=== PATIENT | female | born 1980 | race Caucasian/White ===

== ENCOUNTER 2016-06-12 10:51 | Emergency (ER) | payer OTHER ==
[~2016-06-12 10:51] MED LIST: CLEO300C2 PO; Z.0.NO CURRENT MEDS
[2016-06-12 10:57] VITALS: BP 182/104; PULSE 97; RESP 12; TEMP 98.2; O2SAT 100
[2016-06-12] MEDS ORDERED: METR250 PO (12:49)
--- NOTE | 2016-06-12 13:35 | PD ---
HPI Chief Complaint: Abdominal Pain Time Seen by Provider: 13:09 Travel History International Travel<30 days: No Contact w/Intl Traveler<30days: No Traveled to known affect area: No History of Present Illness HPI The patient was seen and examined in the presence of the nurse. This patient complains of abdominal pain. Duration 2 days. It is located just to the right side of her umbilicus. It's a very small discrete area. No nausea or vomiting or diarrhea. She has no fever and is eating well. PFSH Past Medical History ?: Not Past Surgical History Tonsillectomy: Yes Social History Alcohol Use: No Tobacco Use: No Substance Use: No Allergies-Medications (Allergen,Severity, Reaction): Coded Allergies: Sulfa (Verified Allergy, Severe, Rash, 10/29/09) Reported Meds & Prescriptions Reported Meds & Active Scripts Active Reported Flagyl (Metronidazole) 250 Mg Tab 250 Mg PO QID Review of Systems General / Constitutional: No: Fever HENT: No: Headaches Cardiovascular: No: Chest Pain or Discomfort Physical Exam Narrative GASTROINTESTINAL: Abdomen soft, non-tender, nondistended. Positive bowel sounds. No hepato-splenomegaly, or palpable masses. No guarding. SKIN: Inspection shows no rash or ulcers. Palpation shows no induration or nodules. Psych: Normal mood and affect. Normal insight and judgment. Data Data Last Documented VS Vital Signs Date Time Temp Pulse Resp B/P Pulse Ox O2 Delivery O2 Flow Rate FiO2 06/12/16 10:57 98.2 97 12 182/104 100 Room Air MDM Medical Decision Making Medical Screen Exam Complete: Yes Emergency Medical Condition: Yes Medical Record Reviewed: Yes Differential Diagnosis Hernia, ileus, appendicitis Narrative Course I have reviewed the patient's electronic medical record. Patient has an atypical minor abdominal complaint. Etiology is unclear. She is a soft benign nontender abdomen. I don't have any clinical suspicion of emergent intra-abdominal process. Urine is negative We had a lengthy discussion about testing. I think it would be nonspecific and not helpful. Recommending primary care follow-up Advised to return of this as worsening or she has repetitive vomiting or fever and more extensive workup can be done. Diagnosis Primary Impression: Abdominal pain Qualified Code: R10.33 - Periumbilical abdominal pain Additional Instructions: The patient was advised to follow up with their physician and return if they worsen. Med/Other Pt SpecificInfo: Other Disposition: 01 DISCHARGE HOME Condition: Stable Han Burrell MD Jun 12, 2016 13:35
== END 2016-06-12 13:51 | disposition home or self-care (01) ==
LOC: NEPB 10:51
DX: R10.9 Unspecified abdominal pain (principal)
CPT/HCPCS: 99283

== ENCOUNTER 2017-03-13 15:04 | Emergency (ER) | payer OTHER ==
[~2017-03-13] VITALS: Ht 167.6 cm; Wt 80.0 kg
[~2017-03-13 15:04] MED LIST changes: -CLEO300C2 PO; +METR250 PO; -Z.0.NO CURRENT MEDS
[2017-03-13 15:06] VITALS: BP 186/108; PULSE 109; RESP 21; TEMP 98.4; O2SAT 99
--- NOTE | 2017-03-13 15:16 | PD ---
Physical Exam Time Seen by Provider: 15:12 Narrative 36-year-old female presents to emergency Department with complaint of chest pain , chest tightness, tingling of the left arm, facial flushing, heart racing onset last night. She has history of panic attacks and took Ativan to calm her symptoms with no relief. Says the symptoms are not similar to her panic attack symptoms. She feels like her blood pressure is elevated. Denies history of hypertension. Patient seen in triage. Vital signs reviewed. Patient awaiting bed placement. Data Data Last Documented VS Vital Signs Date Time Temp Pulse Resp B/P (MAP) Pulse Ox O2 Delivery O2 Flow Rate FiO2 03/13/17 15:06 98.4 109 21 186/108 (134) 99 MDM Supervised Visit with JOHN: Christi Black Mar 13, 2017 15:16
[2017-03-13] MEDS ORDERED: SODIUM CHLORIDE 0.9% FLUSH 10 ML FLUSH IVF PRN (15:30)
[2017-03-13] MEDS ORDERED: LORA-474 PO (16:48)
--- NOTE | 2017-03-13 16:57 | RADRPT ---
EXAM DATE/TIME: 03/13/2017 16:24 [facility] COMPARISON: No previous studies available for comparison. INDICATIONS : Irregular heart rate, chest tightness for 2 days MEDICAL HISTORY : None. SURGICAL HISTORY : None. ENCOUNTER: Initial ACUITY: 2 days PAIN SCORE: 0/10 LOCATION: Bilateral chest FINDINGS: PA and lateral views of the chest demonstrate the lungs to be symmetrically aerated without evidence of mass, infiltrate or effusion. The cardiomediastinal contours are unremarkable. Osseous structure s are intact. CONCLUSION: No acute disease. Mohamud Josue MD FACR on March 13, 2017 at 16:55 Board Certified Radiologist. This report was verified electronically.
[2017-03-13 17:03] VITALS: O2SAT 99
[2017-03-13 17:04] LABS: AUTOMATED NEUTROPHIL # 5.3 TH/MM3 (1.8-7.7); BASOPHIL % 0.5 % (0.0-2.0); EOSINOPHIL # 0.1 TH/MM3 (0-0.4); EOSINOPHIL % 1.5 % (0.0-4.0); HEMATOCRIT 40.9 % (35.0-46.0); HEMO FLAGS DIFF FINAL; LYMPH % 28.1 % (9.0-44.0); LYMPHOCYTE # 2.4 TH/MM3 (1.0-4.8); MEAN CELL VOLUME 85.7 FL (80.0-100.0); MEAN CORPUSCULAR HEMOGLOBIN 28.7 PG (27.0-34.0); MEAN CORPUSCULAR HGB CONC 33.5 % (32.0-36.0); MONO % 7.9 % (0.0-8.0); PLATELET COUNT 300 TH/MM3 (150-450); RED BLOOD COUNT 4.77 MIL/MM3 (4.00-5.30); RED CELL DISTRIBUTION WIDTH 12.8 % (11.6-17.2); WHITE BLOOD COUNT 8.5 TH/MM3 (4.0-11.0)
[2017-03-13 17:14] LABS: APTT (PATIENT) 27.1 SEC (24.3-30.1); INTERNATIONAL NORMALIZED RATIO 0.9 RATIO; PROTHROMBIN TIME - PATIENT 9.9 SEC (9.8-11.6)
[2017-03-13 17:24] LABS: ANION GAP 5 MEQ/L (5-15); BICARBONATE 26.6 MEQ/L (21.0-32.0); BLOOD UREA NITROGEN 16 MG/DL (7-18); CHLORIDE 104 MEQ/L (98-107); GLOMERULAR FILTRATION RATE 69 ML/MIN (>89); MAGNESIUM 2.4 MG/DL (1.5-2.5); SODIUM (NA) 136 MEQ/L (136-145)
[2017-03-13 17:31] LABS: CREATINE KINASE 86 U/L (26-192)
--- NOTE | 2017-03-13 18:09 | PD ---
HPI Chief Complaint: Chest Pain Time Seen by Provider: 17:10 Travel History International Travel<30 days: No Contact w/Intl Traveler<30days: No Traveled to known affect area: No History of Present Illness HPI 36-year-old female patient with history of anxiety, presents to the ER today for insomnia, palpitations, chest discomfort starting yesterday. She states she has been stressed out at work. She had taken her Ativan today and had some symptom relief. She went to come and get checked out because the discomfort was still continuing. She denies any abdominal pains, vomiting, shortness of breath, or other symptoms. Modifying Factors: None Associated Signs & Symptoms: Palpitations, chest discomfort Risk Factors: History of anxiety PFSH Past Medical History Tetanus Vaccination: < 5 Years ?: Not LMP: 03/13/17 Past Surgical History Tonsillectomy: Yes Social History Alcohol Use: No Tobacco Use: No Substance Use: No Allergies-Medications (Allergen,Severity, Reaction): Coded Allergies: Sulfa (Sulfonamide Antibiotics) (Unverified Allergy, Severe, Rash, 01/15/17 ) Reported Meds & Prescriptions Reported Meds & Active Scripts Active Reported Ativan (Lorazepam) 1 Mg Tab 1 Mg PO BID PRN Review of Systems Except as stated in HPI: all other systems reviewed are Neg Physical Exam Narrative GENERAL: Well-developed mildly anxious appearing young female patient currently in mild distress. Awake and oriented 3. SKIN: Focused skin assessment warm/dry. HEAD: Atraumatic. Normocephalic. EYES: Pupils equal and round. No scleral icterus. No injection or drainage. ENT: No nasal bleeding or discharge. Mucous membranes pink and moist. NECK: Trachea midline. No JVD. CARDIOVASCULAR: Regular rate and rhythm. No murmur appreciated. Pulses are present and equal bilaterally. RESPIRATORY: No accessory muscle use. Clear to auscultation. Breath sounds equal bilaterally. GASTROINTESTINAL: Abdomen soft, non-tender, nondistended. Hepatic and splenic margins not palpable. MUSCULOSKELETAL: No obvious deformities. No clubbing. No cyanosis. No edema. NEUROLOGICAL: Awake and alert. No obvious cranial nerve deficits. Motor grossly within normal limits. Normal speech. PSYCHIATRIC: Appropriate mood and affect; insight and judgment normal. Data Data Last Documented VS Vital Signs Date Time Temp Pulse Resp B/P (MAP) Pulse Ox O2 Delivery O2 Flow Rate FiO2 03/13/17 17:03 99 03/13/17 15:06 98.4 109 21 Orders Orders Electrocardiogram (03/13/17 15:16) Basic Metabolic Panel (Bmp) (03/13/17 15:16) Ckmb (Isoenzyme) Profile (03/13/17 15:16) Complete Blood Count With Diff (03/13/17 15:16) Magnesium (Mg) (03/13/17 15:16) Prothrombin Time / Inr (Pt) (03/13/17 15:16) Act Partial Throm Time (Ptt) (03/13/17 15:16) Troponin I (03/13/17 15:16) Ecg Monitoring (03/13/17 15:16) Iv Access Insert/Monitor (03/13/17 15:16) Oximetry (03/13/17 15:16) Oxygen Administration (03/13/17 15:16) Sodium Chloride 0.9% Flush (Ns Flush) (03/13/17 15:30) Chest, Pa & Lat (03/13/17 15:16) Ed Discharge Order (03/13/17 18:09) Labs Laboratory Tests Test 03/13/17 16:53 White Blood Count 8.5 TH/MM3 Red Blood Count 4.77 MIL/MM3 Hemoglobin 13.7 GM/DL Hematocrit 40.9 % Mean Corpuscular Volume 85.7 FL Mean Corpuscular Hemoglobin 28.7 PG Mean Corpuscular Hemoglobin Concent 33.5 % Red Cell Distribution Width 12.8 % Platelet Count 300 TH/MM3 Mean Platelet Volume 6.9 FL Neutrophils (%) (Auto) 62.0 % Lymphocytes (%) (Auto) 28.1 % Monocytes (%) (Auto) 7.9 % Eosinophils (%) (Auto) 1.5 % Basophils (%) (Auto) 0.5 % Neutrophils # (Auto) 5.3 TH/MM3 Lymphocytes # (Auto) 2.4 TH/MM3 Monocytes # (Auto) 0.7 TH/MM3 Eosinophils # (Auto) 0.1 TH/MM3 Basophils # (Auto) 0.0 TH/MM3 CBC Comment DIFF FINAL Differential Comment Prothrombin Time 9.9 SEC Prothromb Time International Ratio 0.9 RATIO Activated Partial Thromboplast Time 27.1 SEC Blood Urea Nitrogen 16 MG/DL Creatinine 0.92 MG/DL Random Glucose 88 MG/DL Calcium Level 9.0 MG/DL Magnesium Level 2.4 MG/DL Sodium Level 136 MEQ/L Potassium Level 4.0 MEQ/L Chloride Level 104 MEQ/L Carbon Dioxide Level 26.6 MEQ/L Anion Gap 5 MEQ/L Estimat Glomerular Filtration Rate 69 ML/MIN Total Creatine Kinase 86 U/L Troponin I LESS THAN 0.02 NG/ML MDM Medical Decision Making Medical Screen Exam Complete: Yes Emergency Medical Condition: Yes Medical Record Reviewed: Yes Interpretation(s) EKG shows NSR, no ST elevation or depression, and no arrhythmias. No significant T-wave inversions. Laboratory Tests Test 03/13/17 16:53 Mean Platelet Volume 6.9 FL (7.0-11.0) Estimat Glomerular Filtration Rate 69 ML/MIN (>89) Troponin I LESS THAN 0.02 NG/ML Last 24 hours Impressions Chest X-Ray 03/13/17 1516 Signed Impressions: Service Date/Time: Saturday, March 13, 2017 16:24 - CONCLUSION: No acute disease. Mohamud Josue MD FACR Differential Diagnosis Chest pains, anxiety: Dysrhythmias versus ACS versus anxiety attack Narrative Course EKG did not show dysrhythmias. Symptoms are consistent with anxiety attack. She had some symptom relief with taking Ativan as well. She would be a low risk considering history for ACS. At this point, my plan would be to release her with follow-up to primary care physician. Return for worsening in symptoms as necessary. The plan has been discussed with her and she states understanding. Diagnosis Primary Impression: Palpitations Disposition: 01 DISCHARGE HOME Condition: Stable Angelina Noble MD Mar 13, 2017 18:09
--- NOTE | 2017-03-14 12:09 | EKG ---
Date Performed: 03/13/2017 Time Performed: 15:32:59 PTAGE: 36 years EKG: Sinus rhythm WITH SINUS ARRHYTHMIA NORMAL ECG PREVIOUS TRACING : 03/13/2017 15.23 DOCTOR: Isabel Mukherjee Interpretating Date/Time 03/15/2017 06:56:44
== END 2017-03-13 18:55 | disposition home or self-care (01) ==
LOC: NEPC 15:04
DX: R00.2 Palpitations (principal); R07.89 Other chest pain; F41.9 Anxiety disorder, unspecified; Z79.899 Other long term (current) drug therapy
CPT/HCPCS: 71020; 80048; 82550; 83735; 84484; 85025; 85610; 85730; 93005; 99285

== ENCOUNTER 2017-08-14 10:34 | Emergency (ER) | payer OTHER ==
[~2017-08-14] VITALS: Ht 167.6 cm; Wt 80.0 kg
[~2017-08-14 10:34] MED LIST changes: +LORA-474 PO; -METR250 PO
[2017-08-14 10:58] VITALS: BP 143/65; PULSE 89; RESP 17; TEMP 98.6; O2SAT 99
[2017-08-14 11:52] LABS: BACTERIA, URINE RARE /hpf; BILIRUBIN, URINE NEG (NEG); BLOOD, URINE SMALL (NEG); GLUCOSE,URINE NEG (NEG); KETONE, URINE NEG (NEG); NITRITE,URINE NEG (NEG); PH, URINE 6.5 (5.0-8.5); SQUAMOUS EPITHELIAL CELL URINE 1 /hpf (0-5); URINE COLOR YELLOW (YELLW/STRAW); URINE LEUKOCYTE ESTERASE NEG (NEG)
[2017-08-14] MEDS ORDERED: PROPOFOL 200 MG/20 ML AMP IV ONE (13:15)
[2017-08-14] MEDS ORDERED: HYDROmorphone HCL PF 2 MG/ML VIAL IV PUSH ONE (13:15)
[2017-08-14] MEDS ORDERED: SODIUM CHLORIDE 0.9% FLUSH 10 ML FLUSH IV FLUSH PRN (14:00)
[2017-08-14 14:07] VITALS: O2SAT 97
[2017-08-14] MEDS ORDERED: ACETAMINOPHEN 1000 MG/100 ML 100 ML IV ONE (14:15)
[2017-08-14 14:34] LABS: AUTOMATED NEUTROPHIL # 6.5 TH/MM3 (1.8-7.7); BASOPHIL % 0.5 % (0.0-2.0); EOSINOPHIL # 0.1 TH/MM3 (0-0.4); EOSINOPHIL % 0.8 % (0.0-4.0); HEMATOCRIT 38.7 % (35.0-46.0); HEMOGLOBIN 13.7 GM/DL (11.6-15.3); MEAN CELL VOLUME 82.4 FL (80.0-100.0); MEAN CORPUSCULAR HEMOGLOBIN 29.1 PG (27.0-34.0); MEAN CORPUSCULAR HGB CONC 35.4 % (32.0-36.0); MEAN PLATELET VOLUME 7.2 FL (7.0-11.0); MONO % 4.9 % (0.0-8.0); MONOCYTE # 0.4 TH/MM3 (0-0.9); NEUT % 71.8 % (16.0-70.0); PLATELET COUNT 252 TH/MM3 (150-450); RED CELL DISTRIBUTION WIDTH 13.3 % (11.6-17.2); WHITE BLOOD COUNT 9.1 TH/MM3 (4.0-11.0)
[2017-08-14 14:50] VITALS: RESP 16
[2017-08-14 15:02] LABS: ALBUMIN 3.8 GM/DL (3.4-5.0); ALT (GPT) 29 U/L (10-53); AST (GOT) 20 U/L (15-37); BLOOD UREA NITROGEN 6 MG/DL (7-18); CHLORIDE 106 MEQ/L (98-107); CREATININE 0.78 MG/DL (0.50-1.00); GLOMERULAR FILTRATION RATE 83 ML/MIN (>89); GLUCOSE,RANDOM 88 MG/DL (74-106); SODIUM (NA) 141 MEQ/L (136-145)
[2017-08-14 15:04] LABS: ALKALINE PHOSPHATASE 54 U/L (45-117); TOTAL BILIRUBIN ADULT 0.6 MG/DL (0.2-1.0); TOTAL PROTEIN 8.3 GM/DL (6.4-8.2)
--- NOTE | 2017-08-14 15:20 | PD ---
HPI Chief Complaint: Abdominal Pain Time Seen by Provider: 12:46 Travel History International Travel<30 days: No Contact w/Intl Traveler<30days: No Traveled to known affect area: No History of Present Illness HPI Is a 36-year-old woman who presents to the emergency [facility] when of abdominal pain. States it has been ongoing for the past couple days associated nausea vomiting, little bit of retching, mostly in the lower abdomen the pain. She has had a little bit of loose stools but no leora watery diarrhea. No fevers. No sick contacts. History Past Medical History Narrative Medical Anxiety Social History Alcohol Use: No Tobacco Use: No Allergies-Medications (Allergen,Severity, Reaction): Coded Allergies: Sulfa (Sulfonamide Antibiotics) (Unverified Allergy, Severe, Rash, 08/14/17 ) Reported Meds & Prescriptions Reported Meds & Active Scripts Active Reported Ativan (Lorazepam) 1 Mg Tab 1 Mg PO BID PRN Review of Systems Except as stated in HPI: all other systems reviewed are Neg Physical Exam Narrative GENERAL: 36-year-old woman, no acute distress. SKIN: Focused skin assessment warm/dry. HEAD: Atraumatic. Normocephalic. EYES: Pupils equal and round. No scleral icterus. No injection or drainage. ENT: No nasal bleeding or discharge. Mucous membranes pink and moist. NECK: Trachea midline. No JVD. CARDIOVASCULAR: Regular rate and rhythm. No murmur appreciated. RESPIRATORY: No accessory muscle use. Clear to auscultation. Breath sounds equal bilaterally. GASTROINTESTINAL: Abdomen is flat and soft. Some tenderness and guarding the right lower quadrant. MUSCULOSKELETAL: No obvious deformities. No clubbing. No cyanosis. No edema. NEUROLOGICAL: Awake and alert. No obvious cranial nerve deficits. Motor grossly within normal limits. Normal speech. PSYCHIATRIC: Appropriate mood and affect; insight and judgment normal. Data Data Last Documented VS Vital Signs Date Time Temp Pulse Resp B/P (MAP) Pulse Ox O2 Delivery O2 Flow Rate FiO2 08/14/17 14:50 16 08/14/17 14:07 97 Room Air 08/14/17 10:58 98.6 89 143/65 (91) Orders Orders Urinalysis - C+S If Indicated (08/14/17 11:00) Ed Urine Pregnancytest Poc (08/14/17 11:00) Hydromorphone Pf Inj (Dilaudid Pf Inj) (08/14/17 13:15) Propofol 200 Mg/20 Ml Inj (Diprivan 200 (08/14/17 13:15) Complete Blood Count With Diff (08/14/17 13:46) Comprehensive Metabolic Panel (08/14/17 13:46) Lipase (08/14/17 13:46) Ct Abd/Pel W Iv Contrast(Rout) (08/14/17 13:46) Iv Access Insert/Monitor (08/14/17 13:46) Ecg Monitoring (08/14/17 13:46) Oximetry (08/14/17 13:46) Sodium Chloride 0.9% Flush (Ns Flush) (08/14/17 14:00) Acetaminophen 1000 Mg/100 Ml (Ofirmev 10 (08/14/17 14:15) Iohexol 350 Inj (Omnipaque 350 Inj) (08/14/17 15:52) Labs Laboratory Tests Test 08/14/17 11:07 08/14/17 14:04 Urine Color YELLOW Urine Turbidity CLEAR Urine pH 6.5 Urine Specific [place] 1.013 Urine Protein NEG mg/dL Urine Glucose (UA) NEG mg/dL Urine Ketones NEG mg/dL Urine Occult Blood SMALL Urine Nitrite NEG Urine Bilirubin NEG Urine Urobilinogen LESS THAN 2.0 MG/DL Urine Leukocyte Esterase NEG Urine RBC 2 /hpf Urine WBC 1 /hpf Urine Squamous Epithelial Cells 1 /hpf Urine Bacteria RARE /hpf Microscopic Urinalysis Comment CULT NOT INDICATED White Blood Count 9.1 TH/MM3 Red Blood Count 4.70 MIL/MM3 Hemoglobin 13.7 GM/DL Hematocrit 38.7 % Mean Corpuscular Volume 82.4 FL Mean Corpuscular Hemoglobin 29.1 PG Mean Corpuscular Hemoglobin Concent 35.4 % Red Cell Distribution Width 13.3 % Platelet Count 252 TH/MM3 Mean Platelet Volume 7.2 FL Neutrophils (%) (Auto) 71.8 % Lymphocytes (%) (Auto) 22.0 % Monocytes (%) (Auto) 4.9 % Eosinophils (%) (Auto) 0.8 % Basophils (%) (Auto) 0.5 % Neutrophils # (Auto) 6.5 TH/MM3 Lymphocytes # (Auto) 2.0 TH/MM3 Monocytes # (Auto) 0.4 TH/MM3 Eosinophils # (Auto) 0.1 TH/MM3 Basophils # (Auto) 0.0 TH/MM3 CBC Comment DIFF FINAL Differential Comment Blood Urea Nitrogen 6 MG/DL Creatinine 0.78 MG/DL Random Glucose 88 MG/DL Total Protein 8.3 GM/DL Albumin 3.8 GM/DL Calcium Level 9.0 MG/DL Alkaline Phosphatase 54 U/L Aspartate Amino Transf (AST/SGOT) 20 U/L Alanine Aminotransferase (ALT/SGPT) 29 U/L Total Bilirubin 0.6 MG/DL Sodium Level 141 MEQ/L Potassium Level 3.8 MEQ/L Chloride Level 106 MEQ/L Carbon Dioxide Level 27.0 MEQ/L Anion Gap 8 MEQ/L Estimat Glomerular Filtration Rate 83 ML/MIN Lipase 128 U/L [facility] Medical Decision Making Medical Screen Exam Complete: Yes Emergency Medical Condition: Yes Interpretation(s) LABS: CBC is unremarkable. CMP is unremarkable. Lipase normal. UA unremarkable. HCG negative. Focal area of colonic thickening in the ascending colon, characteristical colitis but cannot exclude mass. Differential Diagnosis Appendicitis, UTI, enteritis, gastritis, other Narrative Course Medical decision making INITIAL: This is a 36-year-old presents emergency department with abdominal pain and cramping, more in the midabdomen, sister with nausea some vomiting and a little bit of stool changes. She has surprising tenderness in the right lower quadrant with some guarding. No GI or symptoms. Will check CT for appendicitis, supportive treatment. FINAL: CT scan appears to show focal colitis. Is consistent with her exam. Appendix looks normal. Will do a course of Flagyl, hydrocodone if needed for pain. Close follow-up. May need further evaluation because mass cannot be completely excluded. Diagnosis Primary Impression: Colitis Additional Instructions: Take antibiotics as prescribed. Follow-up with your primary doctor this week. Return to the emergency department if worsening abdominal pain, fevers, bloody diarrhea, or any other new or worsening symptoms. Med/Other Pt SpecificInfo: Prescription(s) given Scripts Metronidazole (Metronidazole) 500 Mg Tab 500 MG PO TID for Infection for 7 Days, TAB 0 Refills Prov: Cristopher Lechuga MD 08/14/17 Hydrocodone-Acetaminophen (Hydrocodone-Acetaminophen) 5-325 mg Tab 1 TAB PO Q6H Y for PAIN, #10 TAB 0 Refills Prov: Cristopher Lechuga MD 08/14/17 Disposition: 01 DISCHARGE HOME Condition: Stable Cristopher Lechuga MD Aug 14, 2017 15:20
[2017-08-14] MEDS ORDERED: IOHEXOL 350 MG/ML 10 ML VIAL (for RAD DIAG) IVCONTRAST ONE (15:52)
--- NOTE | 2017-08-14 16:01 | RADRPT ---
EXAM DATE/TIME: 08/14/2017 15:20 [facility] COMPARISON: No previous studies available for comparison. INDICATIONS : Abdominal pain with nausea. IV CONTRAST: 96 cc Omnipaque 350 (iohexol) IV ORAL CONTRAST: No oral contrast ingested. RADIATION DOSE: 7.28 CTDIvol (mGy) MEDICAL HISTORY : None SURGICAL HISTORY : Tonsillectomy. ENCOUNTER: Initial ACUITY: 3 days PAIN SCALE: 8/10 LOCATION: Bilateral lower quadrant TECHNIQUE: Volumetric scanning of the abdomen and pelvis was performed. Using automated exposure control and ad justment of the mA and/or kV according to patient size, radiation dose was kept as low as reasonably achievable to obtain optimal diagnostic quality images. DICOM format image data is available electro nically for review and comparison. FINDINGS: There is abnormal mural thickening of the colon which is mild on the left side. There is a markedly a bnormal 5 cm length area of thickened colon in the proximal ascending colon. Findings are most charac teristic of colitis. Cannot exclude a mass in the proximal right colon. The terminal ileum is unremar kable and the appendix is normal. Lung bases are clear. Small hiatal hernia. No acute findings in the liver, spleen, adrenals, kidneys or pancreas. No calcified gallstones. No free air or significant free fluid. No bowel obstruction. CONCLUSION: 1. Abnormal mural thickening of the colon, mild on the left side and severe on the right side proxima lly, most characteristic of a colitis. There is some pericolonic fat stranding especially on the righ t. Terminal ileum and appendix are unremarkable. See above discussion. Travis Francis MD on August 14, 2017 at 15:50 Board Certified Radiologist. This report was verified electronically.
[2017-08-14] MEDS ORDERED: HYDR-3516 PO (16:07)
[2017-08-14] MEDS ORDERED: METR1TAB76 PO (16:07)
[2017-08-14] MEDS ORDERED: AUGM875T3 PO (16:13)
--- NOTE | 2017-08-14 16:14 | PD ---
Data Data Last Documented VS Vital Signs Date Time Temp Pulse Resp B/P (MAP) Pulse Ox O2 Delivery O2 Flow Rate FiO2 08/14/17 14:50 16 08/14/17 14:07 97 Room Air 08/14/17 10:58 98.6 89 143/65 (91) Orders Orders Urinalysis - C+S If Indicated (08/14/17 11:00) Ed Urine Pregnancytest Poc (08/14/17 11:00) Hydromorphone Pf Inj (Dilaudid Pf Inj) (08/14/17 13:15) Propofol 200 Mg/20 Ml Inj (Diprivan 200 (08/14/17 13:15) Complete Blood Count With Diff (08/14/17 13:46) Comprehensive Metabolic Panel (08/14/17 13:46) Lipase (08/14/17 13:46) Ct Abd/Pel W Iv Contrast(Rout) (08/14/17 13:46) Iv Access Insert/Monitor (08/14/17 13:46) Ecg Monitoring (08/14/17 13:46) Oximetry (08/14/17 13:46) Sodium Chloride 0.9% Flush (Ns Flush) (08/14/17 14:00) Acetaminophen 1000 Mg/100 Ml (Ofirmev 10 (08/14/17 14:15) Iohexol 350 Inj (Omnipaque 350 Inj) (08/14/17 15:52) Ed Discharge Order (08/14/17 16:08) Labs Laboratory Tests Test 08/14/17 11:07 08/14/17 14:04 Urine Color YELLOW Urine Turbidity CLEAR Urine pH 6.5 Urine Specific [place] 1.013 Urine Protein NEG mg/dL Urine Glucose (UA) NEG mg/dL Urine Ketones NEG mg/dL Urine Occult Blood SMALL Urine Nitrite NEG Urine Bilirubin NEG Urine Urobilinogen LESS THAN 2.0 MG/DL Urine Leukocyte Esterase NEG Urine RBC 2 /hpf Urine WBC 1 /hpf Urine Squamous Epithelial Cells 1 /hpf Urine Bacteria RARE /hpf Microscopic Urinalysis Comment CULT NOT INDICATED White Blood Count 9.1 TH/MM3 Red Blood Count 4.70 MIL/MM3 Hemoglobin 13.7 GM/DL Hematocrit 38.7 % Mean Corpuscular Volume 82.4 FL Mean Corpuscular Hemoglobin 29.1 PG Mean Corpuscular Hemoglobin Concent 35.4 % Red Cell Distribution Width 13.3 % Platelet Count 252 TH/MM3 Mean Platelet Volume 7.2 FL Neutrophils (%) (Auto) 71.8 % Lymphocytes (%) (Auto) 22.0 % Monocytes (%) (Auto) 4.9 % Eosinophils (%) (Auto) 0.8 % Basophils (%) (Auto) 0.5 % Neutrophils # (Auto) 6.5 TH/MM3 Lymphocytes # (Auto) 2.0 TH/MM3 Monocytes # (Auto) 0.4 TH/MM3 Eosinophils # (Auto) 0.1 TH/MM3 Basophils # (Auto) 0.0 TH/MM3 CBC Comment DIFF FINAL Differential Comment Blood Urea Nitrogen 6 MG/DL Creatinine 0.78 MG/DL Random Glucose 88 MG/DL Total Protein 8.3 GM/DL Albumin 3.8 GM/DL Calcium Level 9.0 MG/DL Alkaline Phosphatase 54 U/L Aspartate Amino Transf (AST/SGOT) 20 U/L Alanine Aminotransferase (ALT/SGPT) 29 U/L Total Bilirubin 0.6 MG/DL Sodium Level 141 MEQ/L Potassium Level 3.8 MEQ/L Chloride Level 106 MEQ/L Carbon Dioxide Level 27.0 MEQ/L Anion Gap 8 MEQ/L Estimat Glomerular Filtration Rate 83 ML/MIN Lipase 128 U/L MDM Supervised Visit with JOHN: No Narrative Course Spoke with patient, strong family history of colon cancer in her grandfather very young age. Recommended colonoscopy for follow-up. States did not do well with Flagyl, will do Augmentin. Diagnosis Primary Impression: Colitis Additional Instruction: Take antibiotics as prescribed. Follow-up with your primary doctor this week. Given your family history and the CT findings, you feel likely need colonoscopy for follow-up. Return to the emergency department if worsening abdominal pain, fevers, bloody diarrhea, or any other new or worsening symptoms. Scripts Amoxicillin-Clavulanate (Augmentin) 875-125 Mg Tab 1 TAB PO BID for Infection, #14 TAB 0 Refills Prov: Cristopher Lechuga MD 08/14/17 Hydrocodone-Acetaminophen (Hydrocodone-Acetaminophen) 5-325 mg Tab 1 TAB PO Q6H Y for PAIN, #10 TAB 0 Refills Prov: Cristopher Lechuga MD 08/14/17 Disposition: 01 DISCHARGE HOME Condition: Stable Cristopher Lechuga MD Aug 14, 2017 16:14
== END 2017-08-14 16:29 | disposition home or self-care (01) ==
LOC: NEPD 10:34
DX: K52.9 Noninfective gastroenteritis and colitis, unspecified (principal); Z88.2 Allergy status to sulfonamides
CPT/HCPCS: 74177; 80053; 81001; 83690; 84703; 85025; 96365; 99284; J0131; Q9967